=== PATIENT | female | born 1950 | race Caucasian/White ===

== ENCOUNTER → 2016-12-02 | Outpatient (CLI) | payer OTHER, MEDICARE ==
--- NOTE | 2016-12-03 09:20 | MR ---
MRI Lower Extremity, Left Knee History: Left knee pain. ICD-10 code M25.562. Comparison: None. Technique: MRI was performed of the left knee using a 3 [employer] MRI system. Axial, sagittal, and barry l images were obtained with standard imaging sequences. Findings: General: Lobulated fluid collection is seen posterior to the distal femur measuring 3 x 5 cm. The latrice gin appears to be from the posterior capsule near the origin of the lateral head of the gastrocnemius and probably represents a ganglion. No significant joint effusion. No evidence for bone contusion. Ligaments and tendons: Anterior cruciate and posterior cruciate ligaments are intact and unremarkable . Medial collateral ligament and pes anserinus is unremarkable. There is mild edema between the iliot ibial band and lateral femoral condyle. Fibular collateral ligament and biceps femoris are unremarkab le. Popliteus muscle and tendon are intact. Menisci and cartilage: Horizontal signal abnormality is seen in the posterior horn and body of the me dial meniscus extending to the inferior articular surface. There is mild fraying at the free edge. No significant cartilage attenuation in the medial compartment. No evidence for lateral meniscal tear. No significant cartilage attenuation in the lateral compartmen t. Extensor mechanism: Minimal cartilage signal abnormality is seen in the patella and trochlear groove without attenuation. Quadriceps tendon and patellar tendon are unremarkable. Impression: 1. Horizontal tear posterior horn and body medial meniscus extending to the intra-articular surface. 2. Moderate iliotibial band syndrome. 3. Minimal grade 1 chondromalacia patellofemoral compartment. 4. Ganglion posterior to the distal femur whose origin appears to be from the posterior capsule near the lateral gastrocnemius.
== END ==
LOC: FIMAGING 19:27
PROVIDERS: ATTEND Physician Assistant
DX: M25.562 Pain in left knee (principal); M23.222 Derangement of posterior horn of medial meniscus due to old tear or injury, left knee; M76.32 Iliotibial band syndrome, left leg; M22.42 Chondromalacia patellae, left knee; M67.40 Ganglion, unspecified site

== ENCOUNTER → 2017-10-12 | Outpatient (CLI) | payer OTHER, MEDICARE | LOC: FIMAGING 12:01 | PROVIDERS: ATTEND Internal Medicine | DX: Z12.31 Encounter for screening mammogram for malignant neoplasm of breast (principal); Z80.3 Family history of malignant neoplasm of breast | CPT/HCPCS: G0202 ==

== ENCOUNTER → 2018-01-05 | Outpatient (CLI) | payer OTHER, MEDICARE | LOC: FIMAGING 15:23 | PROVIDERS: ATTEND Physician Assistant | DX: M76.892 Other specified enthesopathies of left lower limb, excluding foot (principal); M51.36 Other intervertebral disc degeneration, lumbar region; M51.37 Other intervertebral disc degeneration, lumbosacral region; M48.061 Spinal stenosis, lumbar region without neurogenic claudication; M99.73 Connective tissue and disc stenosis of intervertebral foramina of lumbar region ==

== ENCOUNTER → 2018-02-01 | Outpatient (CLI) | payer OTHER | LOC: FIMAGING 15:32 | PROVIDERS: ATTEND Family Medicine Sports Medicine | DX: M79.662 Pain in left lower leg (principal); M79.89 Other specified soft tissue disorders ==

== ENCOUNTER → 2018-02-01 | Outpatient (CLI) | payer OTHER, MEDICARE | LOC: FIMAGING 15:23 | PROVIDERS: ATTEND Family Medicine Sports Medicine | DX: M67.462 Ganglion, left knee (principal) ==